=== PATIENT | female | born 1970 | race Caucasian/White ===

== ENCOUNTER 2019-01-23 05:12 | Day surgery (SDC) | payer OTHER ==
[2019-01-17 11:17] LABS: HEMATOCRIT 44.9 % (36.0-47.0); HEMOGLOBIN 15.3 g/dL (12.0-15.5); MEAN CORPUSCULAR HGB CONC 34.2 g/dL (32.0-36.0); MEAN CORPUSCULAR VOLUME 85 fl (80-97); PLATELET COUNT 209 10^3/uL (150-450); RED CELL DISTRIBUTION WIDTH 13.8 % (11.5-14.0); WHITE BLOOD COUNT 3.3 10^3/uL (4.0-10.5)
[2019-01-17 11:26] LABS: APPEARANCE,URINE CLEAR; BILIRUBIN,URINE NEGATIVE (NEGATIVE); COLOR,URINE YELLOW; GLUCOSE, URINE NEGATIVE (NEGATIVE); KETONES,URINE NEGATIVE (NEGATIVE); LEUKOCYTE ESTERASE,URINE NEGATIVE (NEGATIVE); NITRITE,URINE NEGATIVE (NEGATIVE); PROTEIN,URINE NEGATIVE (NEGATIVE); URINE SPECIFIC GRAVITY 1.026; UROBILINOGEN,URINE NEGATIVE mg/dL (<2.0)
--- NOTE | 2019-01-18 01:33 | EKG REPORT ---
SEVERITY:- NORMAL ECG - SINUS RHYTHM : Confirmed by: Laureen Pierce MD 18-Jan-2019 01:31:40
[~2019-01-23 05:12] MED LIST: LACTATED RINGERS 1000 ML IV PRN; LIDOCAINE 0.5% INJ-PF (5 MG/ML) 50 ML SDV SUBCUT PRN
[2019-01-23] MEDS ORDERED: FENTANYL CITRATE INJ/PF 100 MCG/2 ML AMPUL ONE (06:22)
[2019-01-23] MEDS ORDERED: MIDAZOLAM 2 MG/2 ML INJ ONE (06:22)
[2019-01-23] MEDS ORDERED: DEXAMETHASONE SOD PHOSPHATE INJ 4 MG/1 ML VIAL ONE (06:22)
[2019-01-23] MEDS ORDERED: ACETAMINOPHEN 1,000 MG/100 ML RTUPB IV ONE (06:23)
[2019-01-23] MEDS ORDERED: ONDANSETRON HCL INJ/PF 4 MG/2 ML SDV ONE (06:23)
[2019-01-23] MEDS ORDERED: PROPOFOL INJ 200 MG/20 ML VIAL IV ONE (06:23)
[2019-01-23] MEDS ORDERED: LIDOCAINE 0.5% INJ-PF (5 MG/ML) 50 ML SDV ONE (06:25)
[2019-01-23] MEDS ORDERED: SUGAMMADEX SODIUM 200 MG/2 ML SDV IV ONE (06:28)
[2019-01-23] MEDS ORDERED: BUPIVACAINE HCL 0.25 % INJ/PF (2.5 MG/1 ML) 30 ML VIAL ONE (07:07)
[2019-01-23] MEDS ORDERED: DIPHENHYDRAMINE HCL 50 MG/ML VIAL IV PRN (08:18)
[2019-01-23] MEDS ORDERED: ONDANSETRON HCL INJ/PF 4 MG/2 ML SDV IV PRN ×2 (08:18→10:36)
[2019-01-23] MEDS ORDERED: MORPHINE SULFATE 10 MG/ML INJ IV PRN (08:18)
[2019-01-23] MEDS ORDERED: PROMETHAZINE HCL INJ 25 MG/1 ML VIAL IV PRN ×2 (08:18)
[2019-01-23] MEDS ORDERED: MEPERIDINE HCL/PF INJ 25 MG/1 ML DISP.SYRIN IV PRN (08:18)
[2019-01-23] MEDS ORDERED: FENTANYL CITRATE INJ/PF 100 MCG/2 ML AMPUL IV PRN ×3 (08:18)
--- NOTE | 2019-01-23 08:54 | Operative Report ---
Operative Report DATE OF SURGERY: 01/23/19 PREOPERATIVE DIAGNOSIS: Right hydrosalpinx POSTOPERATIVE DIAGNOSIS: Same with intra-abdominal adhesions OPERATION: Laparoscopic lysis of adhesions SURGEON: COLTON TAYLOR ANESTHESIA: GA TISSUE REMOVED OR ALTERED: None COMPLICATIONS: None ESTIMATED BLOOD LOSS: Scant INTRAOPERATIVE FINDINGS: See below PROCEDURE: I was called as the surgicalist called to the patient's room; she was undergoing exploratory laparoscopy, right salpingo-oophorectomy by Dr. Johnston; the patient was found to be under general anesthesia, in Trendelenburg position, with 3 ports in position mid and left lower jarrell; there were multiple adhesions between the in the anterior abdominal wall, as well as the lateral aspect of the sigmoid colon. Using the LigaSure energy device, multiple adhesions were taken down between the greater omentum and the anterior abdominal wall. A few adhesions were taken down between the sigmoid colon and the lower lateral abdominal wall. This afforded visualization of the large hydrosalpinx which was actually adhesed to the anterior abdominal wall in the right lower quadrant; adjacent and inferior to the hydrosalpinx was the right tube. The remainder the operation was completed by Dr. Johnston
[2019-01-23] MEDS ORDERED: METHYLENE BLUE 50 MG/10 ML AMPULE ONE (09:00)
[2019-01-23] MEDS: FENTANYL CITRATE INJ/PF 100 MCG/2 ML AMPUL ONE ×2 (10:20→10:25)
[2019-01-23] MEDS ORDERED: HYDROMORPHONE HCL INJ/PF 2 MG/ML AMPULE IV PRN (10:33)
[2019-01-23] MEDS ORDERED: IBUPROFEN 800 MG TABLET PO PRN (10:34)
[2019-01-23] MEDS ORDERED: OXYCODONE-ACETAMINOPHEN 5-325 MG TABLET PO PRN ×2 (10:34→10:35)
[2019-01-23] MEDS ORDERED: HYDROMORPHONE HCL INJ/PF 2 MG/ML AMPULE ONE (11:06)
[2019-01-23] MEDS ORDERED: ROCURONIUM BROMIDE INJ 50 MG/5 ML VIAL IV ONE (11:35)
[2019-01-23] MEDS ORDERED: SUCCINYLCHOLINE CHLORIDE INJ 200 MG/10 ML VIAL ONE (11:35)
[2019-01-23 12:52] VITALS: BP 117/73
--- NOTE | 2019-01-24 07:44 | Operative Report ---
Nonrecallable Operative Report DATE OF SURGERY: 01/23/19 PREOPERATIVE DIAGNOSIS: Right adnexal mass, Pelvic Pain POSTOPERATIVE DIAGNOSIS: NIRANJAN, pelvic adhesive disease OPERATION: Operative Laparoscopy, Lysis of Adhesions, Right salpingo- ophorectomy, Cystoscopy ANESTHESIA: GA TISSUE REMOVED OR ALTERED: right fallopian tube and ovary COMPLICATIONS: pelvic adhesive disease ESTIMATED BLOOD LOSS: 10ml INTRAOPERATIVE FINDINGS: Diffuse adhesive disease with omental and bowel adhesions to anterior abdominal was and pelvic sidewalls. Initially due to dense nature of adhesions unable to visualize pelvis. Once some of adhesions taken down able to visualized normal small appearing left ovary under some filmy and dense adhesions in left pelvic sidewall in the proximity to the descending colon and rectosigmoid. These adhesions were left intact at this time. Dr. Tello asked to assist with adhesiolysis on the right pelvis due to what looked like a large loop of bowel attached to anterior abdominal wall. However, this turned out to be the large hydrosalpinx and right ovary. Bilateral ureteral jets noted on cystoscopy PROCEDURE: Anesthesiologist: Christiano COYNE IV fluids: [1000ml] Urine output: [275ml] Indications: [48yo here for pelvic pain and noted right adnexal mass after evaluation for pelvic pain beginning approximately 1 year ago. She underwent hysterectomy for menorrhagia and endometriosis in 2002 (ovaries not removed). Initial evaluation ordered by PCM included US which noted right ovarian cyst. Repeat US 11/2018 noted increase in size 2.59cm x 6.53cm. She desires to proceed with surgical management of adnexal mass which is suspected to be hydrosalpinx. The risks, benefits, alternatives were reviewed and the patient desires to proceed with planned procedure. ] Procedure: The patient was taken to the operating room where general anesthesia was obtained without difficulty. The patient was then examined under anesthesia with findings as noted above possible right adnexal mass. She was then placed in dorsal supine lithotomy position and prepped and draped in the normal sterile fashion. Attention was then turned to the patient's abdomen where a 5 mm infraumbilical skin incision was then made. The Optiview trocar with 0 laparoscope was then advanced without difficulty under direct visualization with the Optiview trocar. This was performed while tenting the abdominal wall and these will fashion. Intraperitoneal placement was confirmed by the direct visualization. Pneumoperitoneum was then obtained with approximately 4 L carbon dioxide gas. Survey of the patient's abdomen and pelvis revealed findings as noted above. A second skin incision was then made approximately 3 cm superior 4 cm medial to the anterior superior iliac spine on the left and then a third skin incision was made approximately 3 cm superior to the lower incision. These incisions were made under direct visualization with the laparoscope. The second and third trochars were then advanced under direct visualization of the laparoscope at the sites. Extensive adhesiolysis performed for apporximately 1 hour with the assistance of Dr. Tello due to the concern for bowel involvement of bowel on the right which actualy turned out to be the hydrosalpinx once adequate visualization obtained. The severely dilated right fallopian tube was then identified and followed out to the fimbriated end and the LigaSure device was used to clamp and cauterize and cut the infundibulopelvic ligament and vessels and then carefully dissecting the mass and ovary from the remaining adhesions to the pelvic sidewall. Due to placement of mass and severe adhesive disease unable to see full course of ureter. Dr Crawley ( also agreed that ureter course difficult to ascertain) asked to visualize camera view and unable to completely identify the course of the ureter. Therefore cystoscopy added to procedure plan. The infraumbilical port was exchanged for 10mm port and endobag placed for removal of right fallopian tube/ovary mass). All operative sites were visualized and noted to be hemostatic. The 2 additional trochars on the patient's left greater than removed under direct visualization. The 10 mm trocar was then removed after abdominal insufflation was removed. The fascia at the 10 mm trocar site was closed with 0 Vicryl on a UR 6 needle. The skin at all trocar sites were closed with 3-0 Monocryl in a subcuticular fashion with overlying Dermabond. Cystoscopy was performed after injection of methylene blue and bilateral ureteral jets noted. This completed the procedure. No antibiotics were indicated for this procedure. Sponge lap needle and instrument counts were correct 3. The patient tolerated the procedure well and was taken to the recovery area awake and in stable condition.
== END 2019-01-23 12:59 | disposition home or self-care (01) ==
LOC: OROUT 05:12
PROVIDERS: ATTEND Student in an Organized Health Care Education/Training Program
DX: D27.0 Benign neoplasm of right ovary (principal); N70.11 Chronic salpingitis; K66.0 Peritoneal adhesions (postprocedural) (postinfection); F90.9 Attention-deficit hyperactivity disorder, unspecified type; G89.29 Other chronic pain; M54.9 Dorsalgia, unspecified; Z88.0 Allergy status to penicillin; Z88.1 Allergy status to other antibiotic agents; Z88.5 Allergy status to narcotic agent; Z87.892 Personal history of anaphylaxis; Z91.040 Latex allergy status; Z79.899 Other long term (current) drug therapy
CPT/HCPCS: 93010; 93005; 36415; 85027; 81001; 88307 ×2; 58661; J2250; J3490 ×3; J1100; J3010; J1170; J0330; J2405; J2704; J0131; Q9968; 840

== ENCOUNTER 2019-01-27 10:25 | Emergency (ER) | payer OTHER ==
--- NOTE | 2019-01-27 11:42 | ER Document Report ---
ED Medical Screen (RME) - General Chief Complaint: Chest Pain Stated Complaint: POST SURGICAL PAIN Time Seen by Provider: 01/27/19 11:35 Primary Care Provider: REYES RAMSEY DO [Primary Care Provider] - Follow up as needed TRAVEL OUTSIDE OF THE [place] IN LAST 30 DAYS: No - HPI Notes: 01/27/19 11:40 Patient is a 48-year-old female that presents to the emergency department for chief complaint of abdominal pain and chest pain. Patient had right oophorectomy performed on Wednesday. She states yesterday she started having chills, palpitations and a sharp pain in her left abdomen that radiates into the left side of her chest and left shoulder. She has not had a bowel movement since surgery. ROS: GENERAL: chills CV: chest pain PHYSICAL EXAMINATION: GENERAL: Well-appearing, well-nourished and in no acute distress. HEAD: Atraumatic, normocephalic. EYES: Pupils equal round extraocular movements intact, conjunctiva are normal. ENT: Nares patent NECK: Normal range of motion LUNGS: No respiratory distress Abdominal: Left upper quadrant and epigastric tenderness Musculoskeletal: Normal range of motion NEUROLOGICAL: Normal speech, normal gait. PSYCH: Normal mood, normal affect. Skin: Umbilical and left lower abdominal incision clean, dry and intact with no bleeding MDM: Patient seen and examined for rapid initial assessment. Vital signs reviewed. A comprehensive ED assessment and evaluation of the patient, analysis of test results and completion of the medical decision making process will be conducted by additional ED providers. - Related Data Allergies/Adverse Reactions: fluconazole [From Diflucan] Allergy (Severe, Verified 01/27/19 11:34) face swelling hydrocodone Allergy (Severe, Verified 01/27/19 11:34) n and v latex Allergy (Severe, Verified 01/27/19 11:34) Hives penicillin G Allergy (Severe, Verified 01/27/19 11:34) Hives Past Medical History - Social History Chew tobacco use (# tins/day): No Frequency of alcohol use: Rare Drug Abuse: None - Past Medical History Cardiac Medical History: Denies: Hx Coronary Artery Disease, Hx Heart Attack, Hx Hypertension Pulmonary Medical History: Denies: Hx Asthma, Hx Bronchitis, Hx COPD, Hx Pneumonia Neurological Medical History: Denies: Hx Cerebrovascular Accident, Hx Seizures Renal/ Medical History: Denies: Hx Peritoneal Dialysis Musculoskeltal Medical History: Denies Hx Arthritis - Immunizations Hx Diphtheria, Pertussis, Tetanus Vaccination: No History of Influenza Vaccine for 08/2017 - 01/2018 Season: Yes Influenza Administration Date for 08/2017 - 01/2018 Season: 08/30/18 Physical Exam - Vital signs Vitals: Temp Pulse Resp BP Pulse Ox 98.7 F 98 16 139/94 H 97 01/27/19 10:47 01/27/19 10:47 01/27/19 10:47 01/27/19 10:47 01/27/19 10:47 Course - Vital Signs Vital signs: Temp Pulse Resp BP Pulse Ox 98.7 F 98 16 139/94 H 97 01/27/19 10:47 01/27/19 10:47 01/27/19 10:47 01/27/19 10:47 01/27/19 10:47 Doctor's Discharge - Discharge Referrals: REYES RAMSEY, [Primary Care Provider] - Follow up as needed
[2019-01-27 12:37] LABS: HEMATOCRIT 46.7 % (36.0-47.0); HEMOGLOBIN 15.8 g/dL (12.0-15.5); MEAN CORPUSCULAR HEMOGLOBIN 28.4 pg (27.0-33.4); MEAN CORPUSCULAR HGB CONC 33.8 g/dL (32.0-36.0); MEAN CORPUSCULAR VOLUME 84 fl (80-97); PLATELET COUNT 242 10^3/uL (150-450); RED BLOOD COUNT 5.56 10^6/uL (3.72-5.28); RED CELL DISTRIBUTION WIDTH 13.6 % (11.5-14.0)
[2019-01-27 12:54] LABS: ALANINE AMINOTRANSFERASE 28 U/L (9-52); ALBUMIN 4.8 g/dL (3.5-5.0); ALKALINE PHOSPHATASE 92 U/L (38-126); ANION GAP 13 (5-19); ASPARTATE AMINO TRANSFERASE 30 U/L (14-36); BILIRUBIN,DIRECT 0.4 mg/dL (0.0-0.4); BILIRUBIN,TOTAL 0.8 mg/dL (0.2-1.3); BLOOD UREA NITROGEN 19 mg/dL (7-20); CALCIUM 9.9 mg/dL (8.4-10.2); CARBON DIOXIDE 27 mmol/L (22-30); CHLORIDE 100 mmol/L (98-107); GLUCOSE 95 mg/dL (75-110); POTASSIUM 4.8 mmol/L (3.6-5.0); SODIUM 139.8 mmol/L (137-145); TOTAL PROTEIN 7.7 g/dL (6.3-8.2)
[2019-01-27 13:05] LABS: ABSOLUTE LYMPHOCYTES# (MANUAL) 1.4 10^3/uL (0.5-4.7); ABSOLUTE MONOCYTES # (MANUAL) 0.7 10^3/uL (0.1-1.4); ABSOLUTE NEUTROPHILS# (MANUAL) 0.9 10^3/uL (1.7-8.2); BASOPHILS % (MANUAL) 0 % (0-2); EOSINOPHILS % (MANUAL) 3 % (0-6); LYMPHOCYTES % (MANUAL) 46 % (13-45); MONOCYTES % (MANUAL) 22 % (3-13); SEGMENTED NEUTROPHILS % (MAN) 29 % (42-78); TOTAL CELLS COUNTED 100
[2019-01-27 13:06] LABS: PLATELET COMMENT ADEQUATE; RBC MORPHOLOGY COMMENT NORMO-CYTIC/CHROMIC
--- NOTE | 2019-01-27 13:53 | RADIOLOGY REPORT (SQ) ---
EXAM DESCRIPTION: CHEST SINGLE VIEW COMPLETED DATE/TIME: 01/27/2019 1:38 pm REASON FOR STUDY: chest pain COMPARISON: None. EXAM PARAMETERS: NUMBER OF VIEWS: One view. TECHNIQUE: Single frontal radiographic view of the chest acquired. RADIATION DOSE: NA LIMITATIONS: None. FINDINGS: LUNGS AND PLEURA: No opacities, masses or pneumothorax. No pleural effusion. MEDIASTINUM AND HILAR STRUCTURES: No masses. Contour normal. HEART AND VASCULAR STRUCTURES: Heart normal in size. Normal vasculature. BONES: No acute findings. HARDWARE: None in the chest. OTHER: No other significant finding. IMPRESSION: NO ACUTE RADIOGRAPHIC FINDING IN THE CHEST. TECHNICAL DOCUMENTATION: JOB ID: [id number] [employer]- All Rights Reserved Reading location - IP/workstation name: [email or web address]
--- NOTE | 2019-01-27 13:54 | RADIOLOGY REPORT (SQ) ---
EXAM DESCRIPTION: KUB/ABDOMEN (SINGLE VIEW) COMPLETED DATE/TIME: 01/27/2019 1:38 pm REASON FOR STUDY: constipation COMPARISON: None. NUMBER OF VIEWS: One view. TECHNIQUE: Supine radiographic image of the abdomen acquired. LIMITATIONS: None. FINDINGS: BOWEL GAS PATTERN: Abundant fecal material throughout nondilated colon. CALCIFICATIONS: No suspicious calcifications. SOFT TISSUES: No gross mass or suggestion of organomegaly. HARDWARE: Lower lumbar fusion. BONES: No bone lesions or fracture. OTHER: No other significant finding. IMPRESSION: Fecal retention. Reading location - IP/workstation name: [email or web address]
[2019-01-27] MEDS ORDERED: NORMAL SALINE 1000 ML 1,000 ML IV ONE (14:30)
[2019-01-27 14:51] LABS: APPEARANCE,URINE CLEAR; BILIRUBIN,URINE NEGATIVE (NEGATIVE); COLOR,URINE YELLOW; GLUCOSE, URINE NEGATIVE (NEGATIVE); KETONES,URINE NEGATIVE (NEGATIVE); LEUKOCYTE ESTERASE,URINE NEGATIVE (NEGATIVE); NITRITE,URINE NEGATIVE (NEGATIVE); PROTEIN,URINE NEGATIVE (NEGATIVE); URINE SPECIFIC GRAVITY 1.018; UROBILINOGEN,URINE NEGATIVE mg/dL (<2.0)
[2019-01-27 15:46] LABS: INTERNATIONAL RATION (INR) 0.89; PARTIAL THROMBOPLASTIN TIME 30.5 SEC (23.5-35.8); PROTHROMBIN TIME 12.5 SEC (11.4-15.4)
--- NOTE | 2019-01-27 16:08 | RADIOLOGY REPORT (SQ) ---
EXAM DESCRIPTION: CT ABD/PELVIS WITH IV ONLY COMPLETED DATE/TIME: 01/27/2019 3:53 pm REASON FOR STUDY: abdominal pain COMPARISON: None. TECHNIQUE: CT scan of the abdomen and pelvis performed using helical scanning technique with dynamic intravenous contrast injection. No oral contrast. Images reviewed with lung, soft tissue, and bone windows. Reconstructed coronal and sagittal MPR images reviewed. Delayed images for evaluation of the urinary system also acquired. All images stored on PACS. All CT scanners at this facility use dose modulation, iterative reconstruction, and/or weight based d osing when appropriate to reduce radiation dose to as low as reasonably achievable (ALARA). [facility]: Dose Right [facility]: CareDose [facility]: Dose Right [facility]: Teradose 4D [facility]: [employer]Together CONTRAST TYPE AND DOSE: contrast/concentration: Isovue 350.00 mg/ml; Total Contrast Delivered: 79.0 ml; Total Saline Delivered: 67.0 ml RENAL FUNCTION: GFR > 60. RADIATION DOSE: CT Rad equipment meets quality standard of care and radiation dose reduction techniq ues were employed. CTDIvol: 12.3 - 16.1 mGy. DLP: 1498 mGy-cm.. LIMITATIONS: Artifact from lower lumbar fusion. FINDINGS: LOWER CHEST: No significant findings. No nodules or infiltrates. LIVER: Normal size. No masses. No dilated ducts. SPLEEN: Normal size. No focal lesions. PANCREAS: No masses. No significant calcifications. No adjacent inflammation or peripancreatic fluid collections. Pancreatic duct not dilated. GALLBLADDER: No identified stones by CT criteria. No inflammatory changes to suggest cholecystitis. ADRENAL GLANDS: No significant masses or asymmetry. RIGHT KIDNEY AND URETER: Horseshoe kidney. No significant calcifications. No hydronephrosis or hy droureter. LEFT KIDNEY AND URETER: Horseshoe kidney. No significant calcifications. No hydronephrosis or hyd roureter. AORTA AND VESSELS: No aneurysm. No dissection. Renal arteries, SMA, celiac without stenosis. RETROPERITONEUM: No retroperitoneal adenopathy, hemorrhage or masses. BOWEL AND PERITONEAL CAVITY: No masses or inflammatory changes. No free fluid or peritoneal masses. APPENDIX: Small appendicolith. PELVIS: No mass. No free fluid. Normal bladder. ABDOMINAL WALL: Fat containing umbilical hernia. BONES: Nothing acute. OTHER: No other significant finding. IMPRESSION: No acute findings. Horseshoe kidney. TECHNICAL DOCUMENTATION: JOB ID: [id number] Quality ID # [id number]: Final reports with documentation of one or more dose reduction techniques (e.g., Au tomated exposure control, adjustment of the mA and/or kV according to patient size, use of iterative reconstruction technique) 2010 [employer]- All Rights Reserved Reading location - IP/workstation name: [email or web address]
--- NOTE | 2019-01-27 16:24 | EKG REPORT ---
SEVERITY:- NORMAL ECG - SINUS RHYTHM : Confirmed by: Jeff Armenta MD 27-Jan-2019 16:23:24
--- NOTE | 2019-01-27 16:50 | ER Document Report ---
ED General - General Chief Complaint: Chest Pain Stated Complaint: POST SURGICAL PAIN Time Seen by Provider: 01/27/19 11:35 Primary Care Provider: REYES RAMSEY DO [Primary Care Provider] - Follow up as needed CLINTON COLBERT MD [ACTIVE STAFF] - Follow up as needed Mode of Arrival: Ambulatory Information source: Patient, Relative TRAVEL OUTSIDE OF THE [place] IN LAST 30 DAYS: No - HPI Onset: This morning Onset/Duration: Sudden Quality of pain: Sharp Severity: Moderate Pain Level: 2 Associated symptoms: None Exacerbated by: Denies Relieved by: Denies Similar symptoms previously: No Recently seen / treated by doctor: Yes - Patient had a laparoscopic surgery by Dr. Colbert on January 23, 2019 - Related Data Allergies/Adverse Reactions: fluconazole [From Diflucan] Allergy (Severe, Verified 01/27/19 11:34) face swelling hydrocodone Allergy (Severe, Verified 01/27/19 11:34) n and v latex Allergy (Severe, Verified 01/27/19 11:34) Hives penicillin G Allergy (Severe, Verified 01/27/19 11:34) Hives Past Medical History - Social History Smoking Status: Never Smoker Chew tobacco use (# tins/day): No Frequency of alcohol use: Rare Drug Abuse: None Family History: Reviewed & Not Pertinent Patient has suicidal ideation: No Patient has homicidal ideation: No - Past Medical History Cardiac Medical History: Denies: Hx Coronary Artery Disease, Hx Heart Attack, Hx Hypertension Pulmonary Medical History: Denies: Hx Asthma, Hx Bronchitis, Hx COPD, Hx Pneumonia Neurological Medical History: Denies: Hx Cerebrovascular Accident, Hx Seizures Renal/ Medical History: Denies: Hx Peritoneal Dialysis Musculoskeletal Medical History: Denies Hx Arthritis Past Surgical History: Reports: Hx Gynecologic Surgery - R ovary removed and mass removed - Immunizations Hx Diphtheria, Pertussis, Tetanus Vaccination: No Review of Systems - Review of Systems Constitutional: No symptoms reported EENT: No symptoms reported Cardiovascular: No symptoms reported Respiratory: No symptoms reported Gastrointestinal: Abdominal pain, Constipation Genitourinary: No symptoms reported Female Genitourinary: No symptoms reported Musculoskeletal: No symptoms reported Skin: No symptoms reported Hematologic/Lymphatic: No symptoms reported Neurological/Psychological: No symptoms reported -: Yes All other systems reviewed and negative Physical Exam - Vital signs Vitals: Temp Pulse Resp BP Pulse Ox 98.7 F 98 16 139/94 H 97 03/15/19 10:47 01/27/19 10:47 01/27/19 10:47 01/27/19 10:47 01/27/19 10:47 Interpretation: Normal - General General appearance: Appears well, Alert - HEENT Head: Normocephalic, Atraumatic Eyes: Normal Pupils: PERRL - Respiratory Respiratory status: No respiratory distress Chest status: Nontender Breath sounds: Normal Chest palpation: Normal - Cardiovascular Rhythm: Regular Heart sounds: Normal auscultation Murmur: No - Abdominal Inspection: Normal, Other - Laparoscopic scar noted on the left side of the abdominal wall with the wound healed no discharge noted Distension: No distension Bowel sounds: Normal Tenderness: Tender - Mild tenderness to palpation which is diffused. Organomegaly: No organomegaly - Back Back: Normal, Nontender - Extremities General upper extremity: Normal inspection, Nontender, Normal color, Normal ROM, Normal temperature General lower extremity: Normal inspection, Nontender, Normal color, Normal ROM, Normal temperature, Normal weight bearing. No: Olga's sign - Neurological Neuro grossly intact: Yes Cognition: Normal Orientation: AAOx4 [place] Coma Scale Eye Opening: Spontaneous [place] Coma Scale Verbal: Oriented [place] Coma Scale Motor: Obeys Commands [place] Coma Scale Total: 15 Speech: Normal Motor strength normal: LUE, RUE, LLE, RLE Sensory: Normal - Psychological Associated symptoms: Normal affect, Normal mood - Skin Skin Temperature: Warm Skin Moisture: Dry Skin Color: Normal Course - Re-evaluation Re-evalutation: 01/27/19 16:47 On reevaluation patient says she is feeling better. I informed her that I spoke with Dr. Arden Morataya who is on-call for Dr. Clinton Colbert regarding the outcome of her blood work and imaging study. Dr. Morataya recommend that she follows up with Dr. Colbert on Wednesday as an outpatient. I have encouraged the patient to return to the emergency room if her condition worsens or changes. 01/27/19 16:52 - Vital Signs Vital signs: Temp Pulse Resp BP Pulse Ox 98.1 F 98 21 H 120/81 97 01/27/19 16:36 01/27/19 10:47 01/27/19 16:35 01/27/19 17:01 01/27/19 17:01 - Laboratory Result Diagrams: 01/27/19 12:19 01/27/19 12:19 Laboratory results interpreted by me: 01/27/19 01/27/19 12:19 12:19 WBC 3.0 L RBC 5.56 H Hgb 15.8 H Seg Neuts % (Manual) 29 L Lymphocytes % (Manual) 46 H Monocytes % (Manual) 22 H Abs Neuts (Manual) 0.9 L Creatine Kinase 26 L - Diagnostic Test Radiology reviewed: Reports reviewed - EKG Interpretation by Me EKG shows normal: Sinus rhythm Rate: Normal Rhythm: NSR - 86 When compared to previous EKG there are: No significant change Additional EKG results interpreted by me: 01/27/19 16:49 Normal EKG. No STEMI. - Consults Dr Arden Morataya Time consulted: 16:20 Reason for consultation: 01/27/19 16:[address] Arden Morataya who is on-call for Dr. Clinton Colbert. I discussed the patient's labs and imaging study with him. He wants patient discharged home to follow-up with Dr. Colbert in her clinic on Wednesday. Consulted provider: follow-up in office Discharge - Discharge Clinical Impression: Abdominal pain Qualifiers: Abdominal location: generalized Qualified Code(s): R10.84 - Generalized abdominal pain Constipation Qualifiers: Constipation type: unspecified constipation type Qualified Code(s): K59.00 - Constipation, unspecified Condition: Stable Disposition: HOME, SELF-CARE Instructions: Abdominal Pain ([facility]), Constipation ([facility]) Additional Instructions: Please follow-up with Dr. Carla Colbert at her clinic on Wednesday for further evaluation and medical management. Drink plenty of fluids. Please return to the emergency room if your condition worsens or for any other medical concerns. Prescriptions: Bisacodyl [Dulcolax 10 mg Supp.rect] 10 mg TN DAILYP PRN #8 supp.rect PRN Reason: Constipation Docusate Sodium [Colace 100 mg Capsule] 100 mg PO BID #30 capsule Referrals: REYES RAMSEY DO [Primary Care Provider] - Follow up as needed CLINTON COLBERT MD [ACTIVE STAFF] - Follow up as needed
[2019-01-27 17:06] VITALS: BP 120/81
== END 2019-01-27 17:12 | disposition home or self-care (01) ==
LOC: ER 10:25
DX: R10.84 Generalized abdominal pain (principal); K59.00 Constipation, unspecified; R07.9 Chest pain, unspecified; Z91.040 Latex allergy status; Z88.0 Allergy status to penicillin
CPT/HCPCS: 93005; 99284; 36415; 82553; 82550; 85025; 85610; 85730; 80053; 81001; 84484; 71045; 74018; 74177; 93010; J7030; 96360